=== PATIENT | male | born 1995 | race Caucasian/White ===

== ENCOUNTER 2017-03-08 08:26 | Emergency (ER) | payer MEDICAID ==
[~2017-03-08] VITALS: Ht 162.6 cm; Wt 54.4 kg
[2017-03-08 11:12] VITALS: BP 136/81
== END 2017-03-08 11:12 | disposition home or self-care (01) ==
LOC: ED 08:26
DX: N48.30 Priapism, unspecified (principal); R03.0 Elevated blood-pressure reading, without diagnosis of hypertension
CPT/HCPCS: J3105